=== PATIENT | male | born 1965 | race Caucasian/White ===

== ENCOUNTER 2018-02-21 22:46 | Inpatient (IN) | payer OTHER ==
[2018-02-21] MEDS: METHYLPREDNISOLONE 125 MG INJ IV (23:18)
[2018-02-21] MEDS: FUROSEMIDE 40 MG INJ IV (23:19)
[2018-02-21] MEDS: NITROGLYCERIN 2% 1 GM OINT PKT TD (23:19)
[2018-02-21] MEDS: IPRATROPIUM (NEB) 0.5 MG/2.5 ML AMP INH (23:22)
[2018-02-21] MEDS: ALBUTEROL 0.5% (NEB) 2.5 MG/0.5 ML AMP INH (23:23)
[2018-02-21 23:52] LABS: ADD MAN DIFF? NO
[2018-02-21 23:54] LABS: WHITE BLOOD COUNT 6.5 10^3/ul (4.8-10.8)
[2018-02-21 23:54] LABS: ABNORMAL IP MESSAGE 1; BASOPHILS % 0.3 % (0.0-2.0); EOSINOPHILS # 0.2 10^3/ul (0.0-0.5); EOSINOPHILS % 3.5 % (0.0-7.0); HEMATOCRIT 19.8 % (42.0-52.0); LYMPHOCYTES # 1.2 10^3/ul (0.8-2.9); MEAN CORPUSCULAR HGB CONC 32.3 g/dl (32.0-37.0); MEAN PLATELET VOLUME 11.5 fl (7.4-10.4); MONOCYTE # 0.4 10^3/ul (0.3-0.9); MONOCYTES % 5.7 % (0.0-11.0); NEUTROPHIL # 4.7 10^3/ul (1.6-7.5); NEUTROPHILS % 72.2 % (39.0-77.0); PLATELET COUNT 126 10^3/UL (140-415); POSITIVE DIFF @See below; RED CELL DISTRIBUTION WIDTH 14.4 % (11.5-14.5)
[2018-02-21 23:58] LABS: HEMOGLOBIN 6.4 g/dl (14.0-18.0)
[2018-02-22 00:09] LABS: INR 1.09; PROTIME 14.2 Sec (11.9-14.9); PT RATIO 1.1
[2018-02-22 00:10] LABS: PARTIAL THROMBOPLASTIN TIME 28.6 Sec (23.0-35.0)
[2018-02-22 00:30] LABS: ALANINE AMINOTRANSFERASE 27 IU/L (13-69); ALBUMIN 3.3 g/dl (3.3-4.9); ALBUMIN/GLOBULIN RATIO 1.37; ALKALINE PHOSPHATASE 51 IU/L (42-121); ANION GAP 13 (5-13); ASPARTATE AMINO TRANSFERASE 33 IU/L (15-46); BILIRUBIN,INDIRECT 0.2 mg/dl (0-1.1); BILIRUBIN,TOTAL 0.2 mg/dl (0.2-1.3); BLOOD UREA NITROGEN 89 mg/dl (7-20); CALCIUM 7.5 mg/dl (8.4-10.2); CARBON DIOXIDE 14 mmol/L (21-31); CHLORIDE 110 mmol/L (97-110); CREATININE 9.09 mg/dl (0.61-1.24); Estimated GFR 6 mL/min (>60); GLUCOSE 140 mg/dl (70-220); POTASSIUM 5.2 mmol/L (3.5-5.1); SODIUM 137 mmol/L (135-144); TOTAL PROTEIN 5.7 g/dl (6.1-8.1)
[2018-02-22 01:06] LABS: TROPONIN-I 0.058 ng/ml (0.000-0.120)
[2018-02-22 01:09] LABS: AADO2 Arterial 74.6 mmHg (7.0-24.0); Arterial Base Excess -11.6 mmol/L (-3.0-3); Arterial COHb 0.7 % (0.0-3.0); Arterial Fraction of Oxyhgb 96.3 % (93.0-99.0); Arterial HCO3 13.8 mmol/L (22.0-26.0); Arterial MetHb 0 % (0.0-1.5); Arterial pCO2 29.3 mmhg (35-45); MODE NASAL CANNULA; Site Right Brachial
[2018-02-22 01:41] LABS: B-TYPE NATRIURETIC PEPTIDE 54300 PG/ML (0-125)
[2018-02-22 03:28] LABS: LACTIC ACID 1.2 mmol/L (0.5-2.0)
[2018-02-22] MEDS ORDERED: DEXTROSE 50% 50 ML SYRINGE IV ×2 (07:00)
[2018-02-22] MEDS ORDERED: GLUCOSE GEL 15 GRAM TUBE BUCCAL (07:00)
[2018-02-22] MEDS ORDERED: GLUCAGON 1 MG INJ IM (07:00)
[2018-02-22] MEDS ORDERED: GLUCOSE GEL 15 GRAM TUBE PO ×2 (07:00)
[2018-02-22 07:20] LABS: ADD MAN DIFF? NO
[2018-02-22 07:25] LABS: WHITE BLOOD COUNT 7.7 10^3/ul (4.8-10.8)
[2018-02-22 07:25] LABS: ABNORMAL IP MESSAGE 1; BASOPHILS % 0.1 % (0.0-2.0); HEMATOCRIT 20.2 % (42.0-52.0); LYMPHOCYTES # 0.1 10^3/ul (0.8-2.9); LYMPHOCYTES % 1.6 % (15.0-51.0); MEAN CORPUSCULAR HEMOGLOBIN 31.1 pg (29.0-33.0); MEAN CORPUSCULAR HGB CONC 32.2 g/dl (32.0-37.0); MEAN CORPUSCULAR VOLUME 96.7 fl (82.0-101.0); MEAN PLATELET VOLUME 11.4 fl (7.4-10.4); MONOCYTES % 0.5 % (0.0-11.0); NEUTROPHIL # 7.5 10^3/ul (1.6-7.5); NEUTROPHILS % 97.4 % (39.0-77.0); PLATELET COUNT 103 10^3/UL (140-415); POSITIVE DIFF @See below; RED BLOOD COUNT 2.09 10^6/ul (4.70-6.10); RED CELL DISTRIBUTION WIDTH 14.2 % (11.5-14.5)
[2018-02-22 07:49] LABS: HEMOGLOBIN 6.5 g/dl (14.0-18.0)
[2018-02-22 07:53] LABS: INR 1.15; PROTIME 14.9 Sec (11.9-14.9); PT RATIO 1.2
[2018-02-22 08:03] LABS: ALANINE AMINOTRANSFERASE 25 IU/L (13-69); ALBUMIN 3.1 g/dl (3.3-4.9); ALBUMIN/GLOBULIN RATIO 1.34; ALKALINE PHOSPHATASE 49 IU/L (42-121); ANION GAP 15 (5-13); ASPARTATE AMINO TRANSFERASE 26 IU/L (15-46); BILIRUBIN,INDIRECT 0.2 mg/dl (0-1.1); BILIRUBIN,TOTAL 0.2 mg/dl (0.2-1.3); BLOOD UREA NITROGEN 89 mg/dl (7-20); CALCIUM 7.5 mg/dl (8.4-10.2); CARBON DIOXIDE 13 mmol/L (21-31); CHLORIDE 109 mmol/L (97-110); CHOL/HDL RATIO 2.5 RATIO; CHOLESTEROL 122 mg/dl (100-200); CREATININE 9.49 mg/dl (0.61-1.24); Estimated GFR 6 mL/min (>60); GLUCOSE 284 mg/dl (70-220); HDL CHOLESTEROL 47 mg/dl (28-71); LDL CHOLESTEROL,CALCULATED 69 mg/dl; MAGNESIUM 1.9 mg/dl (1.7-2.5); PHOSPHORUS 7.1 mg/dl (2.5-4.9); POTASSIUM 5.6 mmol/L (3.5-5.1); SODIUM 137 mmol/L (135-144); TOTAL PROTEIN 5.4 g/dl (6.1-8.1); TRIGLYCERIDES 28 mg/dl (0-149)
[2018-02-22] MEDS: FUROSEMIDE 40 MG INJ IV (08:07)
[2018-02-22] MEDS: AMLODIPINE 5 MG TAB PO (08:07)
[2018-02-22] MEDS: PANTOPRAZOLE (EC) 40 MG TAB PO (08:07)
[2018-02-22] MEDS: FUROSEMIDE 20 MG TAB PO (08:15)
[2018-02-22] MEDS ORDERED: NIFEdipine 10 MG CAP PO (09:00)
[2018-02-22] MEDS: INSULIN ASPART [NOVOLOG] 3 ML PEN SC ×4 (09:06→20:44)
[2018-02-22] MEDS: MULTIVIT/CA CARB/B CMPLX/FA TAB PO (09:07)
[2018-02-22 09:59] LABS: BAND NEUTROPHILS #M 0.6 10^3/ul (0.0-0.6); BAND NEUTROPHILS % (M) 8 % (0-4); BURR CELLS 1+ (0-0); LYMPHOCYTES #M 0.1 10^3/ul (0.8-2.9); LYMPHOCYTES % (M) 2 % (15-51); OVALOCYTES 1+ (0-0); PLATELET ESTIMATE INCREASED; POIKILOCYTOSIS 2+ (0-0); SEGMENTED NEUTROPHILS (M) % 90 % (39-77); SMUDGE%M 1 % (0-0)
[2018-02-22 10:07] LABS: CREATINE KINASE 781 IU/L (23-200)
[2018-02-22 10:07] LABS: IRON 31 ug/dl (35-150)
[2018-02-22 10:16] LABS: % IRON SATURATION 10 % SAT (22-52); TOTAL IRON BINDING CAPACITY 301 ug/dl (241-421)
[2018-02-22 10:19] LABS: URIC ACID 6.6 mg/dl (3.1-7.9)
[2018-02-22 10:31] LABS: TROPONIN-I 0.054 ng/ml (0.000-0.120)
[2018-02-22] MEDS: hydrALAzine 20 MG INJ IV ×2 (10:49→18:03)
[2018-02-22 11:10] LABS: LACTIC ACID 2.6 mmol/L (0.5-2.0)
[2018-02-22] MEDS: LABETALOL HCL 20MG INJ IV (12:03)
[2018-02-22] MEDS: SOD CHLORIDE 0.9% 250 ML IV* (12:26)
[2018-02-22 13:14] LABS: FOLATE 15.7 ng/ml (2.8-20.0)
[2018-02-22] MEDS: NA BICARBONATE 8.4% 50 ML SYG IV (13:49)
[2018-02-22 13:53] LABS: TROPONIN-I 0.045 ng/ml (0.000-0.120)
[2018-02-22] MEDS: CLONIDINE 0.3 MG/24 HR PATCH TRANSDERM (14:29)
[2018-02-22] MEDS ORDERED: HEPARIN 1000 UNITS/ML 10 ML INJ (15:20)
[2018-02-22] MEDS ORDERED: MANNITOL 25% 50 ML IV (15:30)
[2018-02-22] MEDS: SODIUM BICARBONATE (IV ADD) 150 MEQ in DEXTROSE 5% 1,000 ML IV (16:00)
[2018-02-22] MEDS: BUMETANIDE 1 MG INJ IV (18:03)
[2018-02-22] MEDS: CALCIUM ACETATE 667 MG CAP PO (18:03)
[2018-02-22 18:40] LABS: HEPATITIS B SURFACE ANTIGEN NEGATIVE (NEGATIVE)
[2018-02-22 18:58] LABS: HEPATITIS B SURFACE ANTIBODY NEGATIVE (NEGATIVE)
[2018-02-22] MEDS: HEPARIN 1000 UNITS/ML 10 ML INJ CATHETER (20:02)
[2018-02-22] MEDS: ATORVASTATIN 10 MG TAB PO (20:40)
[2018-02-22] MEDS: INSULIN GLARGINE [LANTus] (100 UNITS/ML) SYG SC (21:09)
[2018-02-22] MEDS ORDERED: HEPARIN 5,000 UNIT/0.5 ML VIAL (21:28)
[2018-02-22 21:31] LABS: CREATINE KINASE 583 IU/L (23-200)
[2018-02-22] MEDS: HEPARIN 5,000 UNIT/1 ML VIAL SC (22:03)
[2018-02-23] MEDS: hydrALAzine 20 MG INJ IV ×2 (00:08→17:40)
[2018-02-23] MEDS: ACCU-CHEK XX (01:18)
[2018-02-23] MEDS ORDERED: HEPARIN 5,000 UNIT/0.5 ML VIAL ×3 (05:20→22:07)
[2018-02-23] MEDS: PANTOPRAZOLE (EC) 40 MG TAB PO (05:41)
[2018-02-23] MEDS: HEPARIN 5,000 UNIT/1 ML VIAL SC ×3 (05:41→22:17)
[2018-02-23] MEDS: BUMETANIDE 1 MG INJ IV ×2 (05:42→17:40)
[2018-02-23 06:11] LABS: ADD MAN DIFF? NO
[2018-02-23 06:19] LABS: WHITE BLOOD COUNT 8.3 10^3/ul (4.8-10.8)
[2018-02-23 06:19] LABS: BASOPHILS % 0.2 % (0.0-2.0); EOSINOPHILS % 0.2 % (0.0-7.0); HEMATOCRIT 21.8 % (42.0-52.0); HEMOGLOBIN 7.4 g/dl (14.0-18.0); LYMPHOCYTES % 11.4 % (15.0-51.0); MEAN CORPUSCULAR HEMOGLOBIN 31.2 pg (29.0-33.0); MEAN CORPUSCULAR HGB CONC 33.9 g/dl (32.0-37.0); MEAN PLATELET VOLUME 11.6 fl (7.4-10.4); MONOCYTE # 0.6 10^3/ul (0.3-0.9); MONOCYTES % 6.7 % (0.0-11.0); NEUTROPHIL # 6.7 10^3/ul (1.6-7.5); NEUTROPHILS % 81.1 % (39.0-77.0); PLATELET COUNT 122 10^3/UL (140-415); RED BLOOD COUNT 2.37 10^6/ul (4.70-6.10); RED CELL DISTRIBUTION WIDTH 15.6 % (11.5-14.5)
[2018-02-23 06:35] LABS: PHOSPHORUS 6.8 mg/dl (2.5-4.9)
[2018-02-23 06:38] LABS: ALANINE AMINOTRANSFERASE 25 IU/L (13-69); ALBUMIN 3.1 g/dl (3.3-4.9); ALKALINE PHOSPHATASE 43 IU/L (42-121); ANION GAP 9 (5-13); ASPARTATE AMINO TRANSFERASE 23 IU/L (15-46); BILIRUBIN,INDIRECT 0.3 mg/dl (0-1.1); BILIRUBIN,TOTAL 0.3 mg/dl (0.2-1.3); BLOOD UREA NITROGEN 71 mg/dl (7-20); CALCIUM 7.7 mg/dl (8.4-10.2); CARBON DIOXIDE 24 mmol/L (21-31); CHLORIDE 104 mmol/L (97-110); CREATININE 7.17 mg/dl (0.61-1.24); Estimated GFR 8 mL/min (>60); GLUCOSE 103 mg/dl (70-220); POTASSIUM 4.9 mmol/L (3.5-5.1); SODIUM 137 mmol/L (135-144); TOTAL PROTEIN 5.3 g/dl (6.1-8.1)
[2018-02-23] MEDS: INSULIN ASPART [NOVOLOG] 3 ML PEN SC ×4 (07:55→22:17)
[2018-02-23] MEDS: CALCIUM ACETATE 667 MG CAP PO ×3 (08:29→17:55)
[2018-02-23] MEDS: MULTIVIT/CA CARB/B CMPLX/FA TAB PO (08:29)
[2018-02-23] MEDS: AMLODIPINE 5 MG TAB PO (08:30)
[2018-02-23] MEDS: INFLUENZA VIRUS VACCINE 0.5 ML (DISPENSING) IM* (10:35)
[2018-02-23 11:29] LABS: ADD UMIC YES; UR ASCORBIC ACID NEGATIVE (NEGATIVE); UR BACTERIA FEW /HPF (NONE SEEN); UR BILIRUBIN (Dip) NEGATIVE (NEGATIVE); UR BLOOD (Dip) 1+ mg/dL (NEGATIVE); UR CLARITY CLEAR (CLEAR); UR COLOR STRAW (YELLOW); UR GLUCOSE (Dip) 2+ mg/dL (NEGATIVE); UR KETONES (Dip) NEGATIVE (NEGATIVE); UR LEUKOCYTE ESTERASE (Dip) NEGATIVE Leu/ul (NEGATIVE); UR NITRITE (Dip) NEGATIVE (NEGATIVE); UR RBC 2 /HPF (0-5); UR TOTAL PROTEIN (Dip) 3+ mg/dl (NEGATIVE); UR UROBILINOGEN (Dip) NEGATIVE (NEGATIVE); UR WBC 4 /HPF (0-5)
[2018-02-23 11:49] LABS: CREATININE,URINE RANDOM 45.14 mg/dl (20-370)
[2018-02-23 11:49] LABS: SODIUM,URINE RANDOM 43 mmol/L (30-90)
[2018-02-23 11:52] LABS: AMPHETAMINE/METHAMPHETAMINE Negative (NEGATIVE); BARBITURATES Negative (NEGATIVE); BENZODIAZEPINES Negative (NEGATIVE); CANNABINOIDS Negative (NEGATIVE); COCAINE Negative (NEGATIVE); OPIATES Negative (NEGATIVE)
[2018-02-23] MEDS: SODIUM BICARBONATE (IV ADD) 150 MEQ in DEXTROSE 5% 1,000 ML IV (12:00)
[2018-02-23 13:09] LABS: OCCULT BLOOD STOOL NEGATIVE (NEGATIVE)
[2018-02-23 15:03] LABS: ADD UMIC YES; UR ASCORBIC ACID NEGATIVE (NEGATIVE); UR BILIRUBIN (Dip) NEGATIVE (NEGATIVE); UR BLOOD (Dip) 2+ mg/dL (NEGATIVE); UR CLARITY CLEAR (CLEAR); UR COLOR STRAW (YELLOW); UR GLUCOSE (Dip) 3+ mg/dL (NEGATIVE); UR KETONES (Dip) NEGATIVE (NEGATIVE); UR LEUKOCYTE ESTERASE (Dip) NEGATIVE Leu/ul (NEGATIVE); UR NITRITE (Dip) NEGATIVE (NEGATIVE); UR RBC 5 /HPF (0-5); UR TOTAL PROTEIN (Dip) 3+ mg/dl (NEGATIVE); UR UROBILINOGEN (Dip) NEGATIVE (NEGATIVE); UR WBC 3 /HPF (0-5)
[2018-02-23] MEDS ORDERED: MULTIVIT/CA CARB/B CMPLX/FA TAB PO (16:00)
[2018-02-23] MEDS: LOSARTAN 50 MG TAB PO (16:00)
[2018-02-23] MEDS: HEPARIN 1000 UNITS/ML 10 ML INJ CATHETER (20:03)
[2018-02-23] MEDS: ATORVASTATIN 10 MG TAB PO (22:12)
[2018-02-23] MEDS: INSULIN GLARGINE [LANTus] (100 UNITS/ML) SYG SC (22:16)
[2018-02-24] MEDS: ACCU-CHEK XX (02:00)
[2018-02-24] MEDS ORDERED: HEPARIN 5,000 UNIT/0.5 ML VIAL ×3 (06:22→21:31)
[2018-02-24] MEDS: BUMETANIDE 1 MG INJ IV ×2 (06:48→17:15)
[2018-02-24] MEDS: PANTOPRAZOLE (EC) 40 MG TAB PO (06:49)
[2018-02-24] MEDS: HEPARIN 5,000 UNIT/1 ML VIAL SC ×3 (06:56→21:51)
[2018-02-24 07:29] LABS: ADD MAN DIFF? NO
[2018-02-24 07:38] LABS: BASOPHILS % 0.5 % (0.0-2.0); EOSINOPHILS # 0.2 10^3/ul (0.0-0.5); HEMATOCRIT 21.7 % (42.0-52.0); HEMOGLOBIN 7.3 g/dl (14.0-18.0); LYMPHOCYTES # 0.8 10^3/ul (0.8-2.9); LYMPHOCYTES % 12.6 % (15.0-51.0); MEAN CORPUSCULAR HEMOGLOBIN 31.5 pg (29.0-33.0); MEAN CORPUSCULAR HGB CONC 33.6 g/dl (32.0-37.0); MEAN CORPUSCULAR VOLUME 93.5 fl (82.0-101.0); MEAN PLATELET VOLUME 11.5 fl (7.4-10.4); MONOCYTE # 0.5 10^3/ul (0.3-0.9); MONOCYTES % 7.8 % (0.0-11.0); NEUTROPHIL # 4.9 10^3/ul (1.6-7.5); NEUTROPHILS % 75.6 % (39.0-77.0); PLATELET COUNT 111 10^3/UL (140-415); RED BLOOD COUNT 2.32 10^6/ul (4.70-6.10); RED CELL DISTRIBUTION WIDTH 15.3 % (11.5-14.5)
[2018-02-24 07:38] LABS: WHITE BLOOD COUNT 6.4 10^3/ul (4.8-10.8)
[2018-02-24] MEDS: INSULIN ASPART [NOVOLOG] 3 ML PEN SC ×4 (07:54→21:50)
[2018-02-24 08:10] LABS: ALANINE AMINOTRANSFERASE 26 IU/L (13-69); ALBUMIN 2.8 g/dl (3.3-4.9); ALBUMIN/GLOBULIN RATIO 1.21; ALKALINE PHOSPHATASE 46 IU/L (42-121); ANION GAP 10 (5-13); ASPARTATE AMINO TRANSFERASE 22 IU/L (15-46); BILIRUBIN,INDIRECT 0.3 mg/dl (0-1.1); BILIRUBIN,TOTAL 0.3 mg/dl (0.2-1.3); BLOOD UREA NITROGEN 55 mg/dl (7-20); CALCIUM 7.6 mg/dl (8.4-10.2); CARBON DIOXIDE 27 mmol/L (21-31); CHLORIDE 101 mmol/L (97-110); Estimated GFR 11 mL/min (>60); GLUCOSE 87 mg/dl (70-220); POTASSIUM 4.6 mmol/L (3.5-5.1); SODIUM 138 mmol/L (135-144); TOTAL PROTEIN 5.1 g/dl (6.1-8.1)
[2018-02-24 08:30] LABS: PHOSPHORUS 5.3 mg/dl (2.5-4.9)
[2018-02-24 08:30] LABS: MAGNESIUM 1.8 mg/dl (1.7-2.5)
[2018-02-24] MEDS: MULTIVIT/CA CARB/B CMPLX/FA TAB PO (08:40)
[2018-02-24] MEDS: FERROUS SULFATE (EC) 325 MG TAB PO ×2 (08:40→21:45)
[2018-02-24] MEDS: CALCIUM ACETATE 667 MG CAP PO ×3 (08:40→17:15)
[2018-02-24] MEDS: AMLODIPINE 5 MG TAB PO (08:41)
[2018-02-24] MEDS: LOSARTAN 50 MG TAB PO (08:41)
[2018-02-24] MEDS: SOD CHLORIDE 0.9% 250 ML IV* (09:31)
[2018-02-24] MEDS ORDERED: MIDAZOLAM 1 MG/ML 2 ML INJ (11:34)
[2018-02-24] MEDS ORDERED: FENTAnyl 50 MCG/ML VIAL (11:34)
[2018-02-24] MEDS ORDERED: HEPARIN 1000 UNITS/ML 10 ML INJ (11:34)
[2018-02-24] MEDS ORDERED: LIDOCAINE 2% (MDV) 20 ML INJ (11:50)
[2018-02-24] MEDS ORDERED: SOD CHLORIDE 0.9% 500 ML (11:50)
[2018-02-24] MEDS ORDERED: HEPARIN 1000 UNITS/NS (A-LINE) 1,000 ML (11:50)
[2018-02-24 12:38] LABS: IMMEDIATE SPIN CROSSMATCH 1 4
[2018-02-24] MEDS: hydrALAzine 20 MG INJ IV (16:53)
[2018-02-24] MEDS: ATORVASTATIN 10 MG TAB PO (21:45)
[2018-02-24] MEDS: INSULIN GLARGINE [LANTus] (100 UNITS/ML) SYG SC (21:50)
[2018-02-24 23:04] LABS: ERYTHROPOIETIN 3.3 mIU/mL (2.6-18.5)
[2018-02-25] MEDS: ACCU-CHEK XX (02:00)
[2018-02-25] MEDS ORDERED: HEPARIN 5,000 UNIT/0.5 ML VIAL ×3 (06:30→21:15)
[2018-02-25] MEDS: BUMETANIDE 1 MG INJ IV ×2 (06:33→17:25)
[2018-02-25] MEDS: PANTOPRAZOLE (EC) 40 MG TAB PO (06:34)
[2018-02-25] MEDS: HEPARIN 5,000 UNIT/1 ML VIAL SC ×3 (06:36→21:25)
[2018-02-25 07:17] LABS: ADD MAN DIFF? NO
[2018-02-25 07:19] LABS: BASOPHILS % 0.3 % (0.0-2.0); EOSINOPHILS # 0.1 10^3/ul (0.0-0.5); EOSINOPHILS % 2.1 % (0.0-7.0); HEMATOCRIT 24.8 % (42.0-52.0); HEMOGLOBIN 8.3 g/dl (14.0-18.0); LYMPHOCYTES # 0.6 10^3/ul (0.8-2.9); LYMPHOCYTES % 9.2 % (15.0-51.0); MEAN CORPUSCULAR HEMOGLOBIN 31.2 pg (29.0-33.0); MEAN CORPUSCULAR HGB CONC 33.5 g/dl (32.0-37.0); MEAN CORPUSCULAR VOLUME 93.2 fl (82.0-101.0); MEAN PLATELET VOLUME 12.3 fl (7.4-10.4); MONOCYTE # 0.4 10^3/ul (0.3-0.9); MONOCYTES % 5.7 % (0.0-11.0); NEUTROPHIL # 5.5 10^3/ul (1.6-7.5); NEUTROPHILS % 82.5 % (39.0-77.0); PLATELET COUNT 118 10^3/UL (140-415); RED BLOOD COUNT 2.66 10^6/ul (4.70-6.10); RED CELL DISTRIBUTION WIDTH 14.6 % (11.5-14.5)
[2018-02-25 07:19] LABS: WHITE BLOOD COUNT 6.7 10^3/ul (4.8-10.8)
[2018-02-25 07:36] LABS: ALANINE AMINOTRANSFERASE 31 IU/L (13-69); ALBUMIN 2.8 g/dl (3.3-4.9); ALBUMIN/GLOBULIN RATIO 1.16; ALKALINE PHOSPHATASE 48 IU/L (42-121); ANION GAP 10 (5-13); ASPARTATE AMINO TRANSFERASE 19 IU/L (15-46); BILIRUBIN,INDIRECT 0.2 mg/dl (0-1.1); BILIRUBIN,TOTAL 0.2 mg/dl (0.2-1.3); BLOOD UREA NITROGEN 75 mg/dl (7-20); CALCIUM 7.6 mg/dl (8.4-10.2); CARBON DIOXIDE 23 mmol/L (21-31); CHLORIDE 104 mmol/L (97-110); CREATININE 6.99 mg/dl (0.61-1.24); Estimated GFR 8 mL/min (>60); GLUCOSE 201 mg/dl (70-220); POTASSIUM 4.9 mmol/L (3.5-5.1); SODIUM 137 mmol/L (135-144); TOTAL PROTEIN 5.2 g/dl (6.1-8.1)
[2018-02-25 07:48] LABS: HEMOGLOBIN A1C 5.7 % (0-5.9)
[2018-02-25] MEDS: CALCIUM ACETATE 667 MG CAP PO ×3 (07:55→17:25)
[2018-02-25] MEDS: INSULIN ASPART [NOVOLOG] 3 ML PEN SC ×4 (07:57→21:00)
[2018-02-25 08:02] LABS: PHOSPHORUS 5.5 mg/dl (2.5-4.9)
[2018-02-25 08:02] LABS: MAGNESIUM 1.9 mg/dl (1.7-2.5)
[2018-02-25] MEDS: AMLODIPINE 10 MG TAB PO (08:27)
[2018-02-25 11:53] LABS: HAAIG REFLEX REFLEX FILED
[2018-02-25 13:31] LABS: HEPATITIS B SURFACE ANTIGEN NEGATIVE (NEGATIVE)
[2018-02-25 13:49] LABS: HEPATITIS B CORE ANTIBODY NEGATIVE (NEGATIVE); HEPATITIS C VIRAL ANTIBODY NEGATIVE (NEGATIVE)
[2018-02-25] MEDS: FERROUS SULFATE (EC) 325 MG TAB PO ×2 (13:54→21:21)
[2018-02-25] MEDS: MULTIVIT/CA CARB/B CMPLX/FA TAB PO (13:54)
[2018-02-25] MEDS: LOSARTAN 50 MG TAB PO ×2 (13:55→22:31)
[2018-02-25] MEDS: HEPARIN 1000 UNITS/ML 10 ML INJ CATHETER (14:03)
[2018-02-25] MEDS: hydrALAzine 20 MG INJ IV (15:50)
[2018-02-25 20:07] LABS: TSH RECEPTOR ANTIBODY <1 (< OR = 16)
[2018-02-25] MEDS: ATORVASTATIN 10 MG TAB PO (21:20)
[2018-02-25] MEDS: INSULIN GLARGINE [LANTus] (100 UNITS/ML) SYG SC (21:29)
[2018-02-26] MEDS: ACCU-CHEK XX (01:26)
[2018-02-26] MEDS ORDERED: HEPARIN 5,000 UNIT/0.5 ML VIAL ×3 (05:13→20:20)
[2018-02-26] MEDS: BUMETANIDE 1 MG INJ IV ×2 (05:16→17:45)
[2018-02-26] MEDS: PANTOPRAZOLE (EC) 40 MG TAB PO (05:17)
[2018-02-26] MEDS: HEPARIN 5,000 UNIT/1 ML VIAL SC ×3 (05:18→21:22)
[2018-02-26 06:06] LABS: ADD MAN DIFF? NO
[2018-02-26 06:09] LABS: BASOPHILS % 0.4 % (0.0-2.0); EOSINOPHILS # 0.2 10^3/ul (0.0-0.5); EOSINOPHILS % 4.3 % (0.0-7.0); HEMATOCRIT 24.7 % (42.0-52.0); HEMOGLOBIN 8.2 g/dl (14.0-18.0); LYMPHOCYTES # 0.9 10^3/ul (0.8-2.9); LYMPHOCYTES % 17.4 % (15.0-51.0); MEAN CORPUSCULAR HEMOGLOBIN 31.7 pg (29.0-33.0); MEAN CORPUSCULAR HGB CONC 33.2 g/dl (32.0-37.0); MEAN CORPUSCULAR VOLUME 95.4 fl (82.0-101.0); MEAN PLATELET VOLUME 11.4 fl (7.4-10.4); MONOCYTE # 0.5 10^3/ul (0.3-0.9); MONOCYTES % 9.4 % (0.0-11.0); NEUTROPHIL # 3.7 10^3/ul (1.6-7.5); NEUTROPHILS % 68.3 % (39.0-77.0); PLATELET COUNT 107 10^3/UL (140-415); RED BLOOD COUNT 2.59 10^6/ul (4.70-6.10); RED CELL DISTRIBUTION WIDTH 14.6 % (11.5-14.5)
[2018-02-26 06:09] LABS: WHITE BLOOD COUNT 5.3 10^3/ul (4.8-10.8)
[2018-02-26 06:45] LABS: ALANINE AMINOTRANSFERASE 29 IU/L (13-69); ALBUMIN 2.7 g/dl (3.3-4.9); ALBUMIN/GLOBULIN RATIO 1.17; ALKALINE PHOSPHATASE 45 IU/L (42-121); ANION GAP 7 (5-13); ASPARTATE AMINO TRANSFERASE 20 IU/L (15-46); BILIRUBIN,INDIRECT 0.3 mg/dl (0-1.1); BILIRUBIN,TOTAL 0.3 mg/dl (0.2-1.3); BLOOD UREA NITROGEN 44 mg/dl (7-20); CALCIUM 7.5 mg/dl (8.4-10.2); CARBON DIOXIDE 29 mmol/L (21-31); CHLORIDE 103 mmol/L (97-110); CREATININE 5.27 mg/dl (0.61-1.24); Estimated GFR 11 mL/min (>60); GLUCOSE 102 mg/dl (70-220); POTASSIUM 4.4 mmol/L (3.5-5.1); SODIUM 139 mmol/L (135-144)
[2018-02-26 06:57] LABS: PHOSPHORUS 4.2 mg/dl (2.5-4.9)
[2018-02-26 06:57] LABS: MAGNESIUM 1.8 mg/dl (1.7-2.5)
[2018-02-26] MEDS: INSULIN ASPART [NOVOLOG] 3 ML PEN SC ×4 (07:46→20:40)
[2018-02-26] MEDS: CALCIUM ACETATE 667 MG CAP PO ×3 (07:47→17:45)
[2018-02-26] MEDS: LOSARTAN 50 MG TAB PO (08:04)
[2018-02-26] MEDS: FERROUS SULFATE (EC) 325 MG TAB PO ×2 (08:04→20:29)
[2018-02-26] MEDS: MULTIVIT/CA CARB/B CMPLX/FA TAB PO (08:04)
[2018-02-26] MEDS: AMLODIPINE 10 MG TAB PO (08:04)
[2018-02-26] MEDS: ATORVASTATIN 10 MG TAB PO (20:28)
[2018-02-26] MEDS: INSULIN GLARGINE [LANTus] (100 UNITS/ML) SYG SC (20:39)
[2018-02-27] MEDS: ACCU-CHEK XX (01:16)
[2018-02-27] MEDS ORDERED: HEPARIN 5,000 UNIT/0.5 ML VIAL ×3 (05:16→17:55)
[2018-02-27] MEDS: BUMETANIDE 1 MG INJ IV ×2 (05:19→16:52)
[2018-02-27] MEDS: PANTOPRAZOLE (EC) 40 MG TAB PO (05:20)
[2018-02-27] MEDS: HEPARIN 5,000 UNIT/1 ML VIAL SC ×3 (05:27→21:38)
[2018-02-27 06:21] LABS: ADD MAN DIFF? NO
[2018-02-27 06:28] LABS: BASOPHILS % 0.3 % (0.0-2.0); EOSINOPHILS # 0.3 10^3/ul (0.0-0.5); EOSINOPHILS % 5.2 % (0.0-7.0); HEMATOCRIT 24.6 % (42.0-52.0); HEMOGLOBIN 8.2 g/dl (14.0-18.0); LYMPHOCYTES # 0.9 10^3/ul (0.8-2.9); LYMPHOCYTES % 15.5 % (15.0-51.0); MEAN CORPUSCULAR HEMOGLOBIN 31.5 pg (29.0-33.0); MEAN CORPUSCULAR HGB CONC 33.3 g/dl (32.0-37.0); MEAN CORPUSCULAR VOLUME 94.6 fl (82.0-101.0); MEAN PLATELET VOLUME 11.4 fl (7.4-10.4); MONOCYTE # 0.5 10^3/ul (0.3-0.9); MONOCYTES % 7.7 % (0.0-11.0); NEUTROPHIL # 4.3 10^3/ul (1.6-7.5); PLATELET COUNT 104 10^3/UL (140-415); RED CELL DISTRIBUTION WIDTH 14.5 % (11.5-14.5)
[2018-02-27 06:51] LABS: ALANINE AMINOTRANSFERASE 25 IU/L (13-69); ALBUMIN 2.8 g/dl (3.3-4.9); ALBUMIN/GLOBULIN RATIO 1.12; ALKALINE PHOSPHATASE 45 IU/L (42-121); ANION GAP 11 (5-13); ASPARTATE AMINO TRANSFERASE 23 IU/L (15-46); BILIRUBIN,INDIRECT 0.2 mg/dl (0-1.1); BILIRUBIN,TOTAL 0.2 mg/dl (0.2-1.3); BLOOD UREA NITROGEN 62 mg/dl (7-20); CALCIUM 7.7 mg/dl (8.4-10.2); CARBON DIOXIDE 25 mmol/L (21-31); CHLORIDE 102 mmol/L (97-110); CREATININE 6.34 mg/dl (0.61-1.24); Estimated GFR 9 mL/min (>60); GLUCOSE 96 mg/dl (70-220); POTASSIUM 4.8 mmol/L (3.5-5.1); SODIUM 138 mmol/L (135-144); TOTAL PROTEIN 5.3 g/dl (6.1-8.1)
[2018-02-27 06:52] LABS: MAGNESIUM 1.9 mg/dl (1.7-2.5)
[2018-02-27] MEDS: INSULIN ASPART [NOVOLOG] 3 ML PEN SC ×4 (07:55→20:46)
[2018-02-27] MEDS: LOSARTAN 50 MG TAB PO (08:15)
[2018-02-27] MEDS: CALCIUM ACETATE 667 MG CAP PO ×3 (08:15→16:52)
[2018-02-27] MEDS: AMLODIPINE 10 MG TAB PO (08:15)
[2018-02-27] MEDS: MULTIVIT/CA CARB/B CMPLX/FA TAB PO (08:15)
[2018-02-27] MEDS: FERROUS SULFATE (EC) 325 MG TAB PO ×2 (08:15→20:40)
[2018-02-27] MEDS: hydrALAzine 20 MG INJ IV (12:08)
[2018-02-27] MEDS: ATORVASTATIN 10 MG TAB PO (20:41)
[2018-02-27] MEDS: INSULIN GLARGINE [LANTus] (100 UNITS/ML) SYG SC (20:46)
[2018-02-28] MEDS: ACCU-CHEK XX (01:59)
[2018-02-28] MEDS: hydrALAzine 20 MG INJ IV (02:14)
[2018-02-28] MEDS: BUMETANIDE 1 MG INJ IV (05:17)
[2018-02-28] MEDS: PANTOPRAZOLE (EC) 40 MG TAB PO (05:19)
[2018-02-28] MEDS: HEPARIN 5,000 UNIT/1 ML VIAL SC ×2 (05:26→14:19)
[2018-02-28 06:28] LABS: ADD MAN DIFF? NO
[2018-02-28 06:39] LABS: WHITE BLOOD COUNT 5.6 10^3/ul (4.8-10.8)
[2018-02-28 06:39] LABS: BASOPHILS % 0.4 % (0.0-2.0); EOSINOPHILS # 0.3 10^3/ul (0.0-0.5); EOSINOPHILS % 4.9 % (0.0-7.0); HEMATOCRIT 24.1 % (42.0-52.0); HEMOGLOBIN 7.9 g/dl (14.0-18.0); LYMPHOCYTES # 0.7 10^3/ul (0.8-2.9); LYMPHOCYTES % 12.8 % (15.0-51.0); MEAN CORPUSCULAR HGB CONC 32.8 g/dl (32.0-37.0); MEAN CORPUSCULAR VOLUME 94.5 fl (82.0-101.0); MEAN PLATELET VOLUME 12.4 fl (7.4-10.4); MONOCYTE # 0.5 10^3/ul (0.3-0.9); MONOCYTES % 8.6 % (0.0-11.0); NEUTROPHIL # 4.1 10^3/ul (1.6-7.5); NEUTROPHILS % 73.1 % (39.0-77.0); PLATELET COUNT 115 10^3/UL (140-415); RED BLOOD COUNT 2.55 10^6/ul (4.70-6.10); RED CELL DISTRIBUTION WIDTH 14.2 % (11.5-14.5)
[2018-02-28 07:14] LABS: ANION GAP 10 (5-13); BLOOD UREA NITROGEN 79 mg/dl (7-20); CALCIUM 7.9 mg/dl (8.4-10.2); CARBON DIOXIDE 26 mmol/L (21-31); CHLORIDE 101 mmol/L (97-110); CREATININE 7.61 mg/dl (0.61-1.24); Estimated GFR 7 mL/min (>60); GLUCOSE 87 mg/dl (70-220); POTASSIUM 4.6 mmol/L (3.5-5.1); SODIUM 137 mmol/L (135-144)
[2018-02-28] MEDS: FERROUS SULFATE (EC) 325 MG TAB PO (07:31)
[2018-02-28] MEDS: INSULIN ASPART [NOVOLOG] 3 ML PEN SC ×2 (07:31→11:50)
[2018-02-28] MEDS: LOSARTAN 50 MG TAB PO (07:32)
[2018-02-28] MEDS: AMLODIPINE 10 MG TAB PO (07:32)
[2018-02-28] MEDS: MULTIVIT/CA CARB/B CMPLX/FA TAB PO (07:32)
[2018-02-28] MEDS: CALCIUM ACETATE 667 MG CAP PO ×2 (07:33→14:08)
[2018-02-28] MEDS: HEPARIN 1000 UNITS/ML 10 ML INJ CATHETER (13:28)
== END 2018-02-28 16:32 | disposition home or self-care (01) | DRG 640 ==
LOC: TEL 02-24 19:26 → E/R 22:46 → TEL 02-22 01:23
PROC: 5A1D70Z Performance of Urinary Filtration, Intermittent, Less than 6 Hours Per Day (ICD-10-PCS; principal; 2018-02-22 15:10)
PROC: 0JH63XZ Insertion of Tunneled Vascular Access Device into Chest Subcutaneous Tissue and Fascia, Percutaneous Approach (ICD-10-PCS; 2018-02-22 15:10)
PROC: 02H633Z Insertion of Infusion Device into Right Atrium, Percutaneous Approach (ICD-10-PCS; 2018-02-22 15:10)
PROC: B244ZZZ Ultrasonography of Right Heart (ICD-10-PCS; 2018-02-22 15:10)
PROC: 30233N1 Transfusion of Nonautologous Red Blood Cells into Peripheral Vein, Percutaneous Approach (ICD-10-PCS; 2018-02-22 15:10)
DX: E87.70 Fluid overload, unspecified (principal); N18.6 End stage renal disease; I12.0 Hypertensive chronic kidney disease with stage 5 chronic kidney disease or end stage renal disease; I16.1 Hypertensive emergency; N17.9 Acute kidney failure, unspecified; N25.81 Secondary hyperparathyroidism of renal origin; J81.1 Chronic pulmonary edema; E11.22 Type 2 diabetes mellitus with diabetic chronic kidney disease; E87.2 Acidosis; D63.1 Anemia in chronic kidney disease; E87.5 Hyperkalemia; E83.39 Other disorders of phosphorus metabolism; E83.51 Hypocalcemia; D69.6 Thrombocytopenia, unspecified; E78.5 Hyperlipidemia, unspecified; Z91.14 Patient's other noncompliance with medication regimen; E11.65 Type 2 diabetes mellitus with hyperglycemia; I16.0 Hypertensive urgency
CPT/HCPCS: 36415; 36430; 36600; 71045; 76775; 80048; 80053; 80061; 80307; 81001; 81003; 82270; 82550; 82607; 82668; 82728; 82746; 82803; 82962; 83036; 83540; 83605; 83735; 83880; 84100; 84155; 84235; 84300; 84443; 84484; 84560; 85025; 85610; 85730; 86704; 86706; 86709; 86803; 86850; 86900; 86901; 86920; 87340; 89190; 90686; 90935; 93005; 93306; 94644; 96374; 96375; 99291-25

== ENCOUNTER 2018-05-05 06:07 | Day surgery (SDC) | payer OTHER ==
[2018-05-05] MEDS ORDERED: CEFAZOLIN 1 GM INJ (07:00)
[2018-05-05] MEDS ORDERED: SEVOFLURANE 15 MIN (07:00)
[2018-05-05] MEDS ORDERED: GELATIN SIZE 100 SPONGE (07:43)
[2018-05-05] MEDS ORDERED: LIDOCAINE 1% (MPF) 30 ML INJ (07:43)
[2018-05-05] MEDS ORDERED: THROMBIN (BOVINE) 5,000 UNIT VIAL TP (07:43)
[2018-05-05] MEDS ORDERED: HEPARIN 1000 UNITS/ML 10 ML INJ (07:44)
[2018-05-05] MEDS: HEPARIN 1000 UNITS/ML 10 ML INJ IRR (07:45)
[2018-05-05] MEDS: LIDOCAINE 1% (MPF) 30 ML INJ INJ (07:45)
[2018-05-05 07:46] LABS: ADD MAN DIFF? NO
[2018-05-05 07:49] LABS: BASOPHILS % 0.4 % (0.0-2.0); EOSINOPHILS # 0.2 10^3/ul (0.0-0.5); HEMATOCRIT 34.3 % (42.0-52.0); HEMOGLOBIN 11.5 g/dl (14.0-18.0); LYMPHOCYTES # 0.9 10^3/ul (0.8-2.9); LYMPHOCYTES % 16.7 % (15.0-51.0); MEAN CORPUSCULAR HGB CONC 33.5 g/dl (32.0-37.0); MEAN CORPUSCULAR VOLUME 98.6 fl (82.0-101.0); MEAN PLATELET VOLUME 11.1 fl (7.4-10.4); MONOCYTE # 0.5 10^3/ul (0.3-0.9); MONOCYTES % 8.6 % (0.0-11.0); NEUTROPHIL # 3.7 10^3/ul (1.6-7.5); NEUTROPHILS % 70.1 % (39.0-77.0); PLATELET COUNT 147 10^3/UL (140-415); RED BLOOD COUNT 3.48 10^6/ul (4.70-6.10); RED CELL DISTRIBUTION WIDTH 13.2 % (11.5-14.5)
[2018-05-05 07:49] LABS: WHITE BLOOD COUNT 5.2 10^3/ul (4.8-10.8)
[2018-05-05 07:51] LABS: INR 1.03; PROTIME 13.6 Sec (11.9-14.9); PT RATIO 1.1
[2018-05-05 07:52] LABS: PARTIAL THROMBOPLASTIN TIME 27.7 Sec (23.0-35.0)
[2018-05-05] MEDS ORDERED: PROPOFOL 20 ML (07:54)
[2018-05-05 07:57] LABS: ALANINE AMINOTRANSFERASE 28 IU/L (13-69); ALBUMIN 4.1 g/dl (3.3-4.9); ALBUMIN/GLOBULIN RATIO 1.46; ALKALINE PHOSPHATASE 50 IU/L (42-121); ANION GAP 13 (5-13); ASPARTATE AMINO TRANSFERASE 47 IU/L (15-46); CALCIUM 9.4 mg/dl (8.4-10.2); CARBON DIOXIDE 29 mmol/L (21-31); CHLORIDE 98 mmol/L (97-110); Estimated GFR 8 mL/min (>60); GLUCOSE 70 mg/dl (70-220); SODIUM 140 mmol/L (135-144); TOTAL PROTEIN 6.9 g/dl (6.1-8.1)
[2018-05-05 08:01] LABS: BLOOD UREA NITROGEN 64 mg/dl (7-20); CREATININE 6.92 mg/dl (0.61-1.24); POTASSIUM 5.5 mmol/L (3.5-5.1)
[2018-05-05] MEDS ORDERED: ONDANSETRON 4 MG INJ IV (09:30)
[2018-05-05] MEDS ORDERED: ALBUMIN HUMAN 5% 250 ML IV (09:30)
[2018-05-05] MEDS ORDERED: DIPHENHYDRAMINE 50 MG INJ IV (09:30)
[2018-05-05] MEDS ORDERED: FENTAnyl 50 MCG/ML VIAL IV ×3 (09:30)
[2018-05-05] MEDS ORDERED: MEPERIDINE 25 MG INJ IV (09:30)
[2018-05-05] MEDS ORDERED: OXYCODONE/ACETAMINOPHEN (5/325) TAB PO (09:30)
[2018-05-05] MEDS ORDERED: HYDROmorphONE 1 MG/5 ML IV SYRINGE IV ×3 (09:30)
[2018-05-05] MEDS ORDERED: ALBUTEROL 0.083% (NEB) 2.5 MG/3 ML AMP HHN (09:30)
[2018-05-05] MEDS ORDERED: LABETALOL HCL 20MG INJ IV (09:30)
[2018-05-05] MEDS ORDERED: hydrALAzine 20 MG INJ (09:32)
[2018-05-05] MEDS: hydrALAzine 20 MG INJ IV (09:37)
[2018-05-05] MEDS: OXYCODONE/ACETAMINOPHEN (5/325) TAB PO (10:41)
== END 2018-05-05 11:15 | disposition home or self-care (01) ==
LOC: SDS 06:07
DX: I12.0 Hypertensive chronic kidney disease with stage 5 chronic kidney disease or end stage renal disease (principal); N18.6 End stage renal disease; E11.9 Type 2 diabetes mellitus without complications
CPT/HCPCS: 36821; 71045; 80053; 85025; 85610; 85730; 93005